=== PATIENT | female | born 1960 | race Caucasian/White ===

== ENCOUNTER → 2020-12-31 12:07 | Outpatient (CLI) | payer OTHER, SELFPAY ==
--- NOTE | 2020-12-30 | FLU_PTH ---
PATIENT: TU CALLOWAY LOC: [facility] U#:[id number] AGE/SX: 64/F ROOM: RE12/31/[address]: Dr. Mirella Pompa MD : 1960 BED: DIS: SPEC #: [id number] RECD: 12/31/20 11:49 STATUS: LINCOLN DONNA #: [id number] JACKIE: 12/30/20 00:[address]: Mirella Pompa DEPT: CYTOLOGY RECD BY: Keara Remy Tissues: A - Thyroid gland, NOS B - Thyroid gland, NOS C - Thyroid gland, NOS D - Thyroid gland, NOS Procedures: Special Stain Group II Surgery Specimen Level IV Cytospin Fluid HEADER OPERATION: Bilateral thyroid fine needle aspiration PRE-OP DIAGNOSIS: Multinodular goiter TISSUE SUBMITTED: A - Right thyroid fluid, B - Right thyroid slides x8, C - Left thyroid fluid, D - Left thyroid slides x8 DIAGNOSIS CYTOLOGY A. Right thyroid nodule fluid, FNA (cytospin and cell block): Consistent with benign follicular/colloid nodule. B. Right thyroid, FNA (smears): Consistent with benign follicular/colloid nodule. Adequate for evaluation. C. Left thyroid nodule fluid, FNA (cytospin and cell block): Consistent with follicular nodule with Hurthle cell changes. D. Left thyroid, FNA (smears): Consistent with follicular nodule with extensive Hurthle cell changes. Adequate for evaluation. See comment. SJ:yousuf 01/01/2021 COMMENT D. The smears are cellular. The differential diagnosis includes adenomatoid nodule versus follicular neoplasm with Hurthle cell changes. Correlation with clinical, radiologic findings and appropriate follow up are necessary. Case has been reviewed in consultation with Dr. Dennis who concurs with the above diagnosis. IDC:AM CYTOLOGY STUDY Slides are reviewed. CYTOLOGY GROSS A - Received is 20 ml of brown cloudy fluid labeled with the patient's name and and designated per the requisition as right thyroid. Submitted for cytology preparation including cell block. B - Received are 8 smears labeled with the patient's name and designated per the requisition as right thyroid. Submitted for staining. C - Received is 20 ml of brown cloudy fluid labeled with the patient's name and and designated per the requisition as left thyroid. Submitted for cytology preparation including cell block. D - Received are 8 smears labeled with the patient's name and designated per the requisition as left thyroid. Submitted for staining. / yousuf 12/31/20 TC:5 CPT: 18673 x2, 95612 x2, 57371 x2
== END ==
PROVIDERS: Referring Provider Surgery; Visit Provider Surgery
DX: E04.2 Nontoxic multinodular goiter (principal)
CPT/HCPCS: 88108; 88305; 88313

== ENCOUNTER 2021-02-12 11:39 | Day surgery (SDC) | payer OTHER, SELFPAY ==
[2021-02-12] VITALS (14 sets, daily range): BP systolic 120–163; BP diastolic 77–103; PULSE 70–135; RESP 16–20; TEMP 36.4–37.4; O2SAT 91–99; BMI 38.5
--- NOTE | 2021-02-12 | THYROID_PTH ---
PATIENT: TU CALLOWAY LOC: [facility] [place] U#:[id number] AGE/SX: 60/F ROOM: RE02/12/[address]: Dr. Sander Mann MD : 1960 BED: DIS: 02/13/2021 SPEC #: [id number] RECD: 02/12/21 14:07 STATUS: LINCOLN REMaciel #: [id number] JACKIE: 02/12/21 00:[address]: Sander Mann DEPT: SURGICAL PATHOLOGY RECD BY: Sharee Ayon ENTERED: 02/12/21 14:29 SP TYPE: THYROID OTHR DR: BRANDIN Machuca Tissues: Thyroid gland, NOS Procedures: Decalcification bone/plaque Frozen Section (charge) Surgery Specimen Level V HEADER OPERATION: Thyroid lobectomy PRE-OP DIAGNOSIS: Multinodular goiter TISSUE SUBMITTED: Left thyroid lobe FROZEN SECTION DIAGNOSIS Left lobe of thyroid, lobectomy: Calcified hyalinized nodule with associated adenomatous change. AM:yousuf 02/12/2021 Case has been reviewed in consultation with Dr. Metcalf who concurs with the above diagnosis. IDC:SJ MICROSCOPIC DIAGNOSIS Left thyroid, lobectomy: Multinodular goiter with Hurthle cell change and extensive calcifications. See comment. LEONARDO:yousuf 02/17/2021 COMMENT Both nodules show extensive calcification. The nodules also show focal Hurthle cell changes. Please make reference to previous specimen ([id number]) right thyroid, FNA with diagnosis of ?consistent with benign follicular/colloid nodule? and left thyroid, FNA with diagnosis of ?consistent with follicular nodule with extensive Hurthle cell changes.? Case has been reviewed in consultation with Dr. Dennis who concurs with the above diagnosis. IDC:AM MICROSCOPIC DESCRIPTION Slides are reviewed. GROSS DESCRIPTION Received fresh for frozen section consultation labeled with the patient's name is a specimen designated left lobe of thyroid. The specimen consists of a lobe of thyroid measuring 5 x 2.7 x 1.5 cm and weighing 11.3 gm. The specimen is differentially inked as follows: isthmus - yellow, anterior surface - blue, posterior surface - black. The specimen is serially sectioned to reveal two calcified nodules ranging in size from 0.7 and 1 cm in greatest diameter. The remainder of the thyroidal tissue is spongy and beefy red in color. No other nodules are identified. A portion of the smaller nodule from the noncalcified area is submitted for frozen section consultation (block 1). The remainder of the specimen is submitted in nine cassettes as follows: 2 & 3 - remainder of the smaller nodule after decalcification, 4-6 - larger nodule after decalcification, 7-9 - remainder of the specimen. / AM:yousuf 02/12/21 TC:5 CPT: 86417, 55435, 52713
--- NOTE | 2021-02-12 11:51 | EKG12_ITS ---
Test Reason : PREOP Blood Pressure : / mmHG Vent. Rate : 067 BPM Atrial Rate : 067 BPM P-R Int : 154 ms QRS Dur : 092 ms QT Int : 414 ms P-R-T Axes : 033 006 035 degrees QTc Int : 437 ms Normal sinus rhythm with sinus arrhythmia Normal ECG Confirmed by LEOBARDO CLARK, KATHRYN ([id number]), editor farm journal RAYMOND BENAVIDES ([id number]) on 02/17/2021 10:49:02 AM Referred By: Sander Mann Confirmed By:KATHRYN BOOTH MD
[2021-02-12 12:10] LABS: Hematocrit 42.7 % (37-47); Hemoglobin 13.7 g/dL (12.0-15.0); Mean Corp Hgb Conc 32.1 g/dL (32-36); Mean Corpuscular Hgb 29.4 pg (27.0-32.0); Mean Corpuscular Volume 91.6 fL (81-99); Mean Platelet Vol. 10.1 fl (6.2-12.0); Platelet Count 255 K/mm3 (150-450); RBC Distribution Width CV 13.5 % (11.6-14.6); RBC Distribution Width SD 45.4 fl (35.1-43.9); Red Blood Count 4.66 M/mm3 (4.2-5.4); White Blood Count 7.2 K/mm3 (4.4-11.0)
[2021-02-12] MEDS: Lactated Ringers 1,000 ML 100 ML IV ×2 (12:19→14:00)
[2021-02-12] MEDS: Cefazolin 2 GM in 0.9% Normal Saline 100 ML IV (13:00)
--- NOTE | 2021-02-12 13:03 | PCM.HP.BLA ---
History and Physical Date of Admission: 02/12/21 HISTORY AND PHYSICAL ? Sirisha Gould 1960 ? ? REFERRING PHYSICIAN: Anna Oneill PA-C ? CHIEF COMPLAINT: Established Patient ? HPI: The patient is a 60 year old female with a complaint of a bilateral thyroid nodule. ? The patient is a 60 year old female?presents with abnormal ultrasound of the thyroid. She denies noting any palpable masses. She denies swallowing difficulties. She denies hoarseness. She denies globus symptoms. She notes no thyroid cancer in the family. She denies any exposure to unusual radiation. Serum TSH is normal. ? US thyroid 12/02/2020??RESULT: Right Lobe: ?6.2 x 2.1 x 2.1 cm; heterogeneous echogenicity, expected vascular flow. Left Lobe: ?5.8 x 1.8 x 2.1 cm; heterogeneous echogenicity, expected vascular flow. Isthmus: 0.3 cm The most suspicious thyroid nodule(s) (up to four) as below: NODULE 1: Location: Mid right Size: 1.4 x 0.9 x 0.9 cm Characteristics: ?? ? Composition: ?Solid or almost completely solid, 2 points ?? ? Echogenicity: Hypoechoic, 2 points ?? ? Shape: ?Gwclvo-vhpb-wzkd, 3 points ?? ? Margin: Smooth, 0 points ?? ? Echogenic foci (add points for all that apply): ?None, 0 points ?? ? Internal vascularity: ?present ?? ? Interval growth: ?No prior available for comparison TI-RADS Category: TR5 ACR Recommendation: TI-RADS 5 nodule. ?FNA is advised. NODULE 2: Location: Inferior right Size: 0.8 x 0.8 x 0.5 cm Characteristics: ?? ? Composition: ?Solid or almost completely solid, 2 points ?? ? Echogenicity: Hypoechoic, 2 points ?? ? Shape: ?Qecgd-onpx-rwtd, 0 points ?? ? Margin: Smooth, 0 points ?? ? Echogenic foci (add points for all that apply): ?None, 0 points ?? ? Internal vascularity: ?present ?? ? Interval growth: ?No prior available for comparison TI-RADS Category: TR4 ACR Recommendation: TI-RADS 4 nodule. ?No FNA or follow-up imaging is advised. NODULE 3: Location: Left mid Size: 1.7 x 1.2 x 1.3 cm Characteristics: ?? ? Composition: ?Solid or almost completely solid, 2 points ?? ? Echogenicity: Hypoechoic, 2 points ?? ? Shape: ?Lheel-ycwi-zwje, 0 points ?? ? Margin: Smooth, 0 points ?? ? Echogenic foci (add points for all that apply): ?Punctate echogenic foci, 3 points ?? ? Internal vascularity: ?present ?? ? Interval growth: ?No prior available for comparison TI-RADS Category: TR5 ACR Recommendation: TI-RADS 5 nodule. ?FNA is advised. NODULE 4: Location: Mid/inferior left Size: 1.6 x 0.9 x 1.4 cm Characteristics: ?? ? Composition: ?Solid or almost completely solid, 2 points ?? ? Echogenicity: Hypoechoic, 2 points ?? ? Shape: ?Fdhma-ioyv-mjzl, 0 points ?? ? Margin: Smooth, 0 points ?? ? Echogenic foci (add points for all that apply): ?Punctate echogenic foci, 3 points ?? ? Internal vascularity: ?absent ?? ? Interval growth: ?No prior available for comparison TI-RADS Category: TR5 ACR Recommendation: TI-RADS 5 nodule. ?FNA is advised. ? ? The patient denies pain, denies difficulty swallowing, deniesrapid enlargement of the neck, deniesdysphagia, denies a change in the voice, denies hot or cold intolerence. The patient has not a prior history of neck radiation treatment. ? ? ? The patient is being seen by me today at the request of Dr. Sd Trujillo MD for my opinion and advice regarding Multinodular goiter (primary encounter diagnosis). ? PAST MEDICAL HISTORY PAST MEDICAL HISTORY Diagnosis Date ? Dysmenorrhea 04/12/2002 ? Elevated glucose 01/25/2021 ? Essential hypertension ? ? Menopause ? ? Pneumonia, viral ? ? Thyroid nodule 01/25/2021 ? Seeing Dr. Mann ? ? PAST SURGICAL HISTORY PAST SURGICAL HISTORY Procedure Laterality Date ? SNGL ? ? ? x 2 ? IMAGING GUIDED FNA THYROID WO CORE BX ? 12/2020 ? PAST SURGICAL HISTORY OF ? 1997 ? ORIF tib/fib ? TOOTH EXTRACTION ? ? ? wisdom teeth ? ? ? CURRENT MEDICATIONS Current Outpatient Medications Medication Sig Dispense Refill ? lisinopril (ZESTRIL, PRINIVIL) 20 mg tablet Take 1 tablet by mouth once daily. 30 tablet 5 ? No current facility-administered medications for this visit. ? ? ALLERGIES: Patient has no known allergies. ? PERSONAL HISTORY: SOCIAL HISTORY Social History ? Tobacco Use ? Smoking status: Current Every Day Smoker ? ? Packs/day: 0.50 ? ? Years: 40.00 ? ? Pack years: 20.00 ? ? Types: Cigarettes ? Smokeless tobacco: Never Used Vaping Use ? Vaping Use: Never used Substance Use Topics ? Alcohol use: Yes ? ? Comment: social ? Drug use: Never ? FAMILY HISTORY: FAMILY HISTORY FAMILY HISTORY Problem Relation Age of Onset ? Heart disease Mother ? ? Diabetes Mother ? ? Thyroid Mother ? ? Ischemic Heart Disease Father ? ? Thyroid Brother ? ? ? REVIEW OF SYMPTOMS: The review of systems data was entered by the nurse and reviewed by me ? Nursing Notes: Keena Evans RN 01/25/2021 1:16 PM Signed REVIEW OF SYSTEMS: ?General:???The patient denies fatigue, denies weight loss, denies weight gain, notes feeling hot, and denies feelings of cold. ?Eyes: ?The patient denies glaucoma, denies eye injury/surgery, wears glasses or contacts. ?Ear/Nose/Throat: ?The patient denies allergies, notes hayfever, denies ear infections, and denies bloody noses. ?Cardiovascular: ?The patient denies chest pain, denies heart disease, notes high blood pressure,denies cardiac stent, denies prior heart attack, notes irregular heart beat, denies high cholesterol, ?denies poor circulation, denies heart failure, other cardiac issues, denies claudication, denies cold feet, denies peripheral arterial stent. ?Respiratory: ?The patient denies tuberculosis, notes pneumonia, notes frequent cough, denies pulmonary embolism, notes shortness of breath, and denies coughing up blood. ?Gastrointestinal: ?The patient denies difficulty swallowing, denies acid reflux, denies ulcers, denies vomiting, denies jaundice/hepatitis, denies gallbladder problems, denies black or tarry stools, denies hemorrhoids, denies bleeding from rectum, denies diverticulitis, denies constipation, denies diarrhea, denies loss of stool control, and denies hernias. ?Kidney/Bladder: ?The patient denies kidney stones, denies urine infections, and denies bloody urine. ?Skin: ?The patient denies a history of skin cancer, denies bleeding/changing moles, and denies a history of skin rash. ?Neurologic: ?The patient denies a history of epilepsy/convulsions, denies headaches, denies head/spinal injuries, and denies stroke/TIA. ?Psychiatric: ?The patient denies psychiatric medications, denies depression, and denies voices, denies substance abuse. ?Endocrine: ?The patient notes thyroid disorders, denies diabetes, and denies hormonal problems. ?Hematologic: ?The patient denies a history of bruising, denies bleeding, and denies anemia, denies blood clots. ?Infections: ?The patient notes a history of measles and mumps, denies rheumatic fever, and denies sexually transmitted diseases. ?Musculoskeletal: ?The patient denies back pain/injury, denies back problems, denies sciatica, denies knee/foot trouble, denies arthritis, or denies gout. When was patient's last Mammogram screening? Never ?Last Colonoscopy: ?Never ? PHYSICAL EXAMINATION: ? General: The patient is 60 year old female, well nourished, well hydrated in no acute distress. The patient is oriented to time, place, and person. ? VITALS: Blood pressure 140/100, pulse 99, temperature 36.4 ?C (97.6 ?F), temperature source Temporal Artery, weight 113.9 kg (251 lb), last menstrual period 12/20/2010, SpO2 100 %. Body mass index is 39.63 kg/m?. ? HEENT: Normal cephalic, ataumatic, pupils are equally round, sclera are anicteric, mucous membranes are moist, oropharynx is clear. Neck has no masses, asymmetry or lymphadenopathy. Thyroid exam no hard nodules. ? Respiratory: Clear to auscultation and percussion. Normal respiratory excursion and pattern. ? Cardiac: Examination is regular rate and rhythm. ? Abdominal exam: Soft, nontender, with no palpable masses. No hepatosplenomegaly. No palpable hernias. ? Rectal exam: exam deferred ? Extremities: no clubbing, cyanosis or edema. No adenopathy. ? Other: ? LABORATORY VALUES: As Noted ? RADIOLOGIC STUDIES: As Noted ? Assessment IMPRESSION:Multinodular goiter (primary encounter diagnosis) ? PLAN: I plan to perform a left thyroid lobectomy possible total thyroidectomy. The planned surgical procedure was discussed extensively with the patient. The risks, benefits, anticipated outcomes and possible complications were mentioned. My staff has also explained the procedure in understandable terms and the patient was given the option to take printed material concerning the planned procedure. The patient had the opportunity to ask questions concerning the planned procedure. The patient freely consents to the planned procedure. ? Diagnoses: (E04.2) Multinodular goiter (primary encounter diagnosis) ? ? ? My findings have been communicated to Dr. Sd Trujillo MD via shared medical record. This note will be forwarded to Dr. Sd Trujillo MD. Return to Clinic: The patient is instructed to follow-up with me 1 week post operatively. ? COVID (Procedure Consent) Procedure Criteria ? Procedure Criteria: Yes Elective The surgeon/proceduralist and patient have discussed in detail the risk of exposure to and/or potential harm posed by the COVID-19 virus with having a surgery/procedure at this time versus the risk of? delaying the surgery/procedure. It is not possible to know either the risk of delaying the surgery or procedure or chance of getting an infection with perfect accuracy, but a joint decision was made between the patient and the surgeon/proceduralist ?to proceed at this time with the scheduled surgery/procedure as indicated on the consent form. ? ? Sander Mann III, MD I have re-examined the patient. There are no clinical changes since date of exam.
[2021-02-12] MEDS: BUPIVACAINE LIPOSOME/PF 20 ML VIAL OPERA.SITE (13:28)
--- NOTE | 2021-02-12 14:38 | PCM.OPRPT ---
Problems Associated Problem List Diagnoses (1) Multinodular goiter (nontoxic): Report of Operation Date of Procedure: 02/12/21 Pre-Operative Diagnosis: Multinodular goiter Post-Operative Diagnosis: Same Surgery/Procedure Performed:: Left thyroid lobectomy and isthmusectomy Surgeon: Sander Mann Type of Anesthesia: General Anesthesiologist: Oscar Bui Specimen's removed: Left thyroid Estimated Blood Loss (mL): < 25 cc Description of Procedure: Patient was brought into the operating room. Placed in the supine position. Under excellent general endotracheal intubation the neck was extended head was made sure that it was able to rest on the bed without floating. The neck was then sterilely prepped and draped in usual fashion. Cervical incision was made. Subplatysmal flaps were created with use of electrocautery. Midline strap muscle was opened up I was able to detach the strap muscles from the left thyroid. I took the middle thyroidal vein down first then went to the superior thyroid vessels down with a harmonic dissector coming down and identified the superior parathyroid gland was able to salvage this without difficulty. Went inferiorly and took the inferior thyroid vessels down I did not see the parathyroid gland on this side. I used the harmonic dissector taking the gland tissue down I had good epistasis I rotated it from a lateral medial standpoint I took down Lutz's ligaments I did not come in contact with the recurrent laryngeal nerve. I transected the thyroid gland on the right side where the isthmus was going in I sent it for a frozen section. This came back as calcified nodules with no signs of papillary thyroid cancer. I make sure that I had good hemostasis in my wound I placed FloSeal in the wound I brought the strap muscles together with a 2-0 Vicryl. Local was injected subcutaneously strap muscles were brought together with 3-0 Vicryl deep dermals with 3-0 Vicryl in a running 4-0 Monocryl Dermabond was applied. Sterile dressings were applied. The patient tolerated the procedure well. Procedure Start Time: 13:28 Admit VTE Documentation VTE Present on Admission: No VTE Mechan Device Prophylaxis: SCD's VTE Pharm Prophylaxis ordered?: No Reason prophylaxis not ordered:: Treatment Not Indicated
[2021-02-12] MEDS: Ipratropium/Albuterol Sulfate 3 ML AMPUL.NEB INHALATION (15:25)
[2021-02-12] MEDS: Labetalol (Prefilled) 20 MG/4 ML 5 MG IV (15:40)
--- NOTE | 2021-02-12 16:10 | SUR.PHASEI ---
Addendum entered by Regine Cordova 02/12/21 16:14: CONTINUE: O2 NOW AT 3 L/MIN, SPO2 92 TO 96%, IMPROVES WITH COUGH & DEEP BREATHING. PATIENT REPORTS FEELING IMPROVED. Original Note: DUONEB AEROSOL HELPFUL PER PATIENT, STATES SHE'S FEELING BETTER, REMAINS ON O2 AT 10 L/MIN BUT BEGAN TO WEAN. HR HAD CONSISTENTLY BEEN IN 130'S ON PACU ARRIVAL AND RESEMBLING SVT; HR CONTINUES IN 130'S, DBP IN 100'S, DR CASANOVA WAS AT BEDSIDE, ORDERED IV LABETALOL WHICH WAS ADMINISTERED AT 1540. PATIENT'S HR BEGAN SLOWING AT 1551 AND IMPROVED AFTER COUGHING, CONVERTED TO SINUS RHYTHM WITH OCCASIONAL PVC, HAS REMAINED IN SAME RHYTHM SINCE. O2 NOW AT
[2021-02-12] MEDS: 0.9% Normal Saline 1,000 ML 75 ML IV (16:53)
[2021-02-12] MEDS: Lisinopril 20 MG Tablet PO (20:39)
[2021-02-13 00:54] VITALS: BP 153/79; PULSE 71; RESP 16; TEMP 37.2; O2SAT 96
[2021-02-13] MEDS: Acetaminophen 325 MG Tablet 650 MG PO (04:34)
[2021-02-13] MEDS: 0.9% Normal Saline 1,000 ML 75 ML IV (04:37)
[2021-02-13 04:40] VITALS: BP 162/83; PULSE 65; RESP 16; TEMP 37; O2SAT 95
[2021-02-13 08:59] VITALS: BP 146/74; PULSE 75; RESP 16; TEMP 36.9; O2SAT 94
[2021-02-13 09:03] VITALS: O2SAT 90
--- NOTE | 2021-02-13 09:12 | EX.PCM.DISCH ---
Discharge Instructions Procedure General Surgery Diet Discharge Diet: Light diet - advance as tolerated (If you have questions about your diet instructions, please talk to your doctor.) Activity Discharge Activity: May Not Drive (for 1 week or while taking narcotic pain medicine.) May shower in (days): 1 Lifting Restrictions: 10 pounds Dressing / Incision Call your doctor if your incision/area has: Continuous Slow Oozing, Sudden Increased Bleeding, Increased Pain/ Swelling, Increased Redness and Foul Smelling Discharge Call your doctor if you observe: Fever of 101 or Higher Suture Line Care: Avoid Pulling/Pushing and Avoid Pinching/Bending Additional Dressing/Incision Instructions:: Change or remove dressing in 4 days. Leave steri-strips in place for 1 week. Follow Up Care Please Follow Up With: Nancy Kothari PA-C When: Call office to schedule an appointment to be seen in about 10 days. Test Results: Test results from this visit will be discussed in further detail at your follow-up appointment, if applicable. Discharge Plan Admission Attending Provider: Sander Mann Primary Care Provider: Anna Oneill Discharge Orders/Prescriptions Prescriptions: New oxycodone-acetaminophen [Endocet] 5-325 mg tablet 1 tab PO Q6H PRN (Reason: pain) 5 Days Qty: 20 RF: 0 Continued lisinopril 20 mg Tablet 20 mg PO QHS RF: 0 Referrals / Follow Up: Sander Mann MD [STAFF PHYSICIAN] - Anna Oneill PA [Primary Care Provider] - Disposition Disposition (needs filled in before D/C Order can be placed): Home, Self Care
== END 2021-02-13 13:00 | disposition home or self-care (01) ==
LOC: SDC 11:44 → AC 11:45 → MS3 02-13 09:12
PROVIDERS: Anesthesiology; PCP Physician Assistant; Referring Provider Surgery; Visit Provider Surgery
PROC: (CPT 60220; principal; 2021-02-12 13:25)
DX: E04.2 Nontoxic multinodular goiter (principal); I10 Essential (primary) hypertension; F17.210 Nicotine dependence, cigarettes, uncomplicated; Z79.899 Other long term (current) drug therapy; Z82.49 Family history of ischemic heart disease and other diseases of the circulatory system; Z83.49 Family history of other endocrine, nutritional and metabolic diseases; Z83.3 Family history of diabetes mellitus
CPT/HCPCS: 00320; 60220; 85027; 88307; 88311; 88331; 93005; 94640; 99251; 99406; J7030; J7120; G0463; J2405